=== PATIENT | female | born 1985 | race African-American/Black ===

== ENCOUNTER 2017-02-27 12:13 | Inpatient (IN) | payer OTHER ==
[2017-02-27 13:12] VITALS: BMI 34.4
--- NOTE | 2017-02-27 17:43 | HP ---
Admission ROS [facility] - [facility] Chief Complaint: I WANT TO GO TO REHAB Allergies/Adverse Reactions: Allergies Allergy/AdvReac Type Severity Reaction Status Date / Time azithromycin Allergy Severe Hives Verified 02/27/17 14:59 peanut Allergy Unknown Verified 02/27/17 14:56 soy Allergy Unknown Verified 02/27/17 14:56 LACTOSE AdvReac Severe diarrhea Uncoded 02/27/17 14:57 History of Present Illness: 31 YEARS OLD FEMALE WITH LONG HISTORY OF ALCOHOL NICOTINE DEPENDENCE HAS ASTHMA , GERD, BIPOLAR II IS ADMITTED TO REHAB Exam Limitations: No Limitations - Ebola screening Have you traveled outside of the country in the last 21 days: No Have you had contact with anyone from an Ebola affected area: No Have you been sick,other than usual withdrawal symptoms: No Do you have a fever: No - Review of Systems Constitutional: No Symptoms Reported EENT: reports: Blurred Vision (EYE GLASSES) Respiratory: reports: SOB with Exertion, Productive cough (CLEAR) Cardiac: reports: No Symptoms Reported GI: reports: Indigestion : reports: No Symptoms Reported Musculoskeletal: reports: Back Pain, Joint Pain (KNEES) Integumentary: reports: No Symptoms Reported Neuro: reports: Seizure (SINCE CHILD PIÑA, TOPIRAMATE) Endocrine: reports: No Symptoms Reported Hematology: reports: No Symptoms Reported Psychiatric: reports: Judgement Intact, Orientated x3, Anxious, Depressed Other Systems: Reviewed and Negative Patient History - Patient Medical History Hx Anemia: No Hx Asthma: Yes Hx Chronic Obstructive Pulmonary Disease (COPD): Yes Hx Cancer: No Hx Cardiac Disorders: No Hx Congestive Heart Failure: No Hx Hypertension: No Hx Hypercholesterolemia: No Hx Pacemaker: No HX Cerebrovascular Accident: No Hx Seizures: No Hx Dementia: No Hx Diabetes: No Hx Gastrointestinal Disorders: Yes (acid reflux) Hx Liver Disease: No Hx Genitourinary Disorders: No Hx Sexually Transmitted Disorders: Yes (genital herpes) Hx Renal Disease (ESRD): No Hx Thyroid Disease: No Hx Human Immunodeficiency Virus (HIV): No Hx Hepatitis C: No Hx Depression: No Hx Suicide Attempt: No Hx Bipolar Disorder: Yes Hx Schizophrenia: No - Patient Surgical History Past Surgical History: Yes Hx Neurologic Surgery: No Hx Cataract Extraction: No Hx Cardiac Surgery: No Hx Lung Surgery: No Hx Breast Surgery: No Hx Breast Biopsy: No Hx Abdominal Surgery: No Hx Appendectomy: No Hx Cholecystectomy: No Hx Genitourinary Surgery: No Hx Section: Yes Hx Orthopedic Surgery: Yes (fx, left side of face in 2015) Hx Hysterectomy: No Anesthesia Reaction: No - PPD History Previous Implant?: Yes Documented Results: Negative w/o proof Implanted On Prior [facility] Admission?: No PPD to be Administered?: Yes - Reproductive History Patient is a Female of Child Bearing Age (11 -55 yrs old): Yes Last Menstrual Period: 02/01/17 Patient : No - Smoking Cessation Smoking history: Current every day smoker Have you smoked in the past 12 months: Yes Aproximately how many cigarettes per day: 40 Cigars Per Day: 0 Hx Chewing Tobacco Use: No Initiated information on smoking cessation: Yes 'Breaking Loose' booklet given: 02/27/17 - Substance & Tx. History Hx Alcohol Use: Yes Hx Substance Use: No Substance Use Type: Alcohol Hx Substance Use Treatment: Yes (2014) - Substances Abused Alcohol-beer Route: Oral Frequency: Daily Amount used: 1-2 (24 oz.) Age of first use: 13 Date of Last Use: 02/25/17 Family Disease History - Family Disease History Family Disease History: Respiratory: Grandparent, Brother (NO CONTACT), Other: Father (NO CONTACT), Mother (NO CONTACT), Brother, Sister (NO CONTACT) Admission Physical Exam S - Vital Signs Vital Signs: Vital Signs - 24 hr 02/27/17 13:10 Temperature 98.6 F Pulse Rate 97 H Respiratory 20 Rate Blood Pressure 117/66 - Physical General Appearance: Yes: No Apparent Distress, Appropriately Dressed, Obese HEENTM: Yes: Hearing grossly Normal, Normal ENT Inspection, Normocephalic, Normal Voice Respiratory: Yes: Chest Non-Tender, No Respiratory Distress, No Accessory Muscle Use, Wheezing, Hyperresonant Neck: Yes: Supple, Trachea in good position Breast: Yes: Breasts Symetrical Cardiology: Yes: Regular Rhythm, S1, S2, Tachycardia Abdominal: Yes: Normal Bowel Sounds, Non Tender, Soft Genitourinary: Yes: Within Normal Limits Back: Yes: Normal Inspection Musculoskeletal: Yes: full range of Motion, Gait Steady, Back pain Extremities: Yes: Normal Inspection, Normal Range of Motion, Non-Tender Neurological: Yes: Fully Oriented, Alert, Motor Strength 5/5, Normal Response, Depressed Affect Integumentary: Yes: Warm Lymphatic: Yes: Within Normal Limits - Diagnostic (1) Alcohol dependence with uncomplicated withdrawal Current Visit: Yes Status: Acute (2) Asthma Current Visit: Yes Status: Chronic Qualifiers: Asthma severity: mild Asthma persistence: intermittent Asthma complication type: with status asthmaticus Qualified Code(s): J45.22 - Mild intermittent asthma with status asthmaticus; J45.22 - Mild intermittent asthma with status asthmaticus; J45.22 - Mild intermittent asthma with status asthmaticus (3) GERD (gastroesophageal reflux disease) Current Visit: Yes Status: Chronic Qualifiers: Esophagitis presence: without esophagitis Qualified Code(s): K21.9 - Gastro-esophageal reflux disease without esophagitis; K21.9 - Gastro- esophageal reflux disease without esophagitis; K21.9 - Gastro-esophageal reflux disease without esophagitis (4) Nicotine dependence Current Visit: Yes Status: Acute Qualifiers: Nicotine product type: cigarettes Substance use status: in withdrawal Qualified Code(s): F17.213 - Nicotine dependence, cigarettes, with withdrawal; F17.213 - Nicotine dependence, cigarettes, with withdrawal (5) Seizure Current Visit: Yes Status: Chronic (6) Herpes Current Visit: Yes Status: Chronic (7) Chronic knee pain Current Visit: Yes Status: Chronic Qualifiers: Laterality: bilateral Qualified Code(s): M25.561 - Pain in right knee; M25.561 - Pain in right knee; G89.29 - Other chronic pain; G89.29 - Other chronic pain (8) Chronic back pain Current Visit: Yes Status: Chronic Qualifiers: Back pain location: low back pain Back pain laterality: bilateral Sciatica presence: without sciatica Qualified Code(s): M54.5 - Low back pain; M54.5 - Low back pain; G89.29 - Other chronic pain; G89.29 - Other chronic pain (9) Bipolar II disorder Current Visit: Yes Status: Suspected Cleared for Admission [facility] - Detox or Rehab [facility] Level of Care: Observation Bed Detox Regimen/Protocol: Not Applicable Claeared for Rehab Admission: Yes [facility] Breath Alcohol Content Breath Alcohol Content: 0 Urine Pregancy Test - Result Urine Test Results: Negative- NO Line Present Urine Drug Screen - Results Drug Screen Negative: Yes Inpatient Rehab Admission - Initial Determination Are CD services needed?: Yes Free of communicable disease: Yes Not in need of hospitalization: Yes - Rehab Admission Criteria Previous failed treatment: Yes Poor recovery environment: Yes Comorbidities: Yes Lacks judgement: No Patient is meeting Inpatient Rehab admission criteria:: Yes
[2017-02-27] MEDS ORDERED: P-EPHED 60MG/TRIPROLIDI 2.5MG TABLET PO PRN (17:45)
[2017-02-27] MEDS ORDERED: ACETAMINOPHEN 325 MG TABLET (FP) PO PRN (17:45)
[2017-02-27] MEDS ORDERED: MENTHOL/PHENOL 1 EACH UD MM PRN (17:45)
[2017-02-27] MEDS ORDERED: MAGNESIUM HYDROX 2400MG/30ML ORAL SUSPENSION 30 ML CUP PO PRN (17:45)
[2017-02-27] MEDS ORDERED: LOPERAMIDE HCL 2 MG CAPSULE PO PRN (17:45)
[2017-02-27] MEDS ORDERED: guaiFENesin/D-METHORPHAN HB 10 ML UNIT-DOSE CUPS PO PRN (17:45)
[2017-02-27] MEDS ORDERED: MAGNESIUM CITRATE 300 ML BOTTLE PO PRN (17:45)
[2017-02-27] MEDS ORDERED: MAG HYDROX/AL HYDROX/SIMETH 30 ML UNIT-DOSE CUP PO PRN (17:45)
[2017-02-27] MEDS: THIAMINE HCL 100 MG TABLET (FP) PO SCH (21:56)
[2017-02-27] MEDS: MONTELUKAST NA 10 MG TABLET PO SCH (21:56)
[2017-02-27] MEDS: BUDESONIDE/FORMETEROL FUMARATE 80/4.5 mcg INHALER IH SCH (21:57)
[2017-02-28 00:30] LABS: PH,URINE 5.5 (5.0-8.0); URINE APPEARANCE CLEAR; URINE BILIRUBIN NEGATIVE (NEGATIVE); URINE BLOOD NEGATIVE (NEGATIVE); URINE COLOR LT. YELLOW; URINE GLUCOSE (UA) NEGATIVE (NEGATIVE); URINE KETONE NEGATIVE (NEGATIVE); URINE NITRITE NEGATIVE (NEGATIVE); URINE PROTEIN NEGATIVE (NEGATIVE); URINE UROBILINOGEN 0.2 mg/dL (0.2-1.0)
[2017-02-28] MEDS: PRENATAL VITAMINS W/ FOLIC ACID TABLET (FP) PO SCH (09:27)
[2017-02-28] MEDS: PATIENT'S OWN MEDICATION (NON-FORMULARY) (Famotidine [Pepcid -] 20 MG) PO SCH ×2 (09:27→21:59)
[2017-02-28] MEDS: NICOTINE 21 MG/24 HOURS TOPICAL PATCH TD SCH (09:28)
[2017-02-28] MEDS: BUDESONIDE/FORMETEROL FUMARATE 80/4.5 mcg INHALER IH SCH ×2 (09:28→22:00)
[2017-02-28] MEDS: valACYclovir HCL 500 MG TABLET (FP) PO SCH (09:28)
[2017-02-28] MEDS: NICOTINE POLACRILEX 4 MG GUM BC PRN ×3 (09:29→22:01)
[2017-02-28 09:53] LABS: URINE LEUK ESTERASE Negative (NEGATIVE)
[2017-02-28 10:02] LABS: MCH 30.2 pg (25.7-33.7); MCHC 33.2 g/dl (32.0-36.0); MEAN CELL VOLUME 90.9 fl (80-96); MEAN PLT VOLUME 11.4 fl (7.5-11.1); PLATELET COUNT 188 K/MM3 (134-434); RDW 14.1 % (11.6-15.6); WHITE BLOOD COUNT 7.9 K/mm3 (4.0-10.0)
[2017-02-28] MEDS: SERTRALINE HCL 50 MG TABLET (FP) PO SCH (10:32)
[2017-02-28] MEDS: TOPIRAMATE 25 MG TABLET (FP) PO SCH (10:33)
[2017-02-28 11:08] LABS: ALK PHOS 80 U/L (45-117); ANION GAP 10 (8-16); BILIRUBIN,TOTAL 0.8 mg/dL (0.2-1.0); CALCIUM 8.7 mg/dL (8.5-10.1); CO2 23 mmol/L (21-32); CREATININE 0.7 mg/dL (0.55-1.02); GLUCOSE,RANDOM 117 mg/dL (74-106); SGOT/AST 9 U/L (15-37); SGPT/ALT 14 U/L (12-78); TOT PROT 7.6 g/dl (6.4-8.2)
[2017-02-28] MEDS: LITHIUM CARBONATE 150 MG CAPSULE PO SCH ×3 (13:24→21:59)
[2017-02-28] MEDS ORDERED: PATIENT'S OWN MEDICATION (NON-FORMULARY) (Cetirizine Hcl 10 MG) PO PRN (14:32)
[2017-02-28] MEDS ORDERED: PT OWN MED DRAWER 7, Y5N ONE ×2 (15:39→21:59)
--- NOTE | 2017-02-28 21:29 | EKG ---
Test Reason : Blood Pressure : / mmHG Vent. Rate : 098 BPM Atrial Rate : 098 BPM P-R Int : 164 ms QRS Dur : 082 ms QT Int : 348 ms P-R-T Axes : 065 054 058 degrees QTc Int : 444 ms NORMAL SINUS RHYTHM EARLT TRANSIYION IN V2 NO PREVIOUS ECGS AVAILABLE REPEAT EKG IF CLINICALLY INDICATED Confirmed by IDALIA RODRIGUEZ MD ([id number]) on 02/28/2017 9:28:58 PM Referred By: Confirmed By:IDALIA RODRIGUEZ MD
[2017-02-28] MEDS: THIAMINE HCL 100 MG TABLET (FP) PO SCH (21:58)
[2017-02-28] MEDS: MONTELUKAST NA 10 MG TABLET PO SCH (21:58)
[2017-03-01] MEDS ORDERED: PT OWN MED DRAWER 7, Y5N ONE ×2 (03:21→12:31)
[2017-03-01] MEDS: LITHIUM CARBONATE 150 MG CAPSULE PO SCH ×3 (07:30→21:22)
[2017-03-01] MEDS: PATIENT'S OWN MEDICATION (NON-FORMULARY) (Famotidine [Pepcid -] 20 MG) PO SCH ×3 (10:23→21:22)
[2017-03-01] MEDS: TOPIRAMATE 25 MG TABLET (FP) PO SCH (10:23)
[2017-03-01] MEDS: valACYclovir HCL 500 MG TABLET (FP) PO SCH (10:23)
[2017-03-01] MEDS: PRENATAL VITAMINS W/ FOLIC ACID TABLET (FP) PO SCH (10:23)
[2017-03-01] MEDS: SERTRALINE HCL 50 MG TABLET (FP) PO SCH (10:23)
[2017-03-01] MEDS: NICOTINE 21 MG/24 HOURS TOPICAL PATCH TD SCH (10:24)
[2017-03-01] MEDS: BUDESONIDE/FORMETEROL FUMARATE 80/4.5 mcg INHALER IH SCH ×2 (10:25→21:22)
[2017-03-01] MEDS: NICOTINE POLACRILEX 4 MG GUM BC PRN ×3 (10:28→18:20)
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
[2017-03-01] MEDS: THIAMINE HCL 100 MG TABLET (FP) PO SCH (21:23)
[2017-03-01] MEDS: MONTELUKAST NA 10 MG TABLET PO SCH (21:23)
[2017-03-02] MEDS: LITHIUM CARBONATE 150 MG CAPSULE PO SCH ×3 (06:26→22:32)
[2017-03-02] MEDS ORDERED: PT OWN MED DRAWER 7, Y5N ONE (06:29)
[2017-03-02] MEDS: BUDESONIDE/FORMETEROL FUMARATE 80/4.5 mcg INHALER IH SCH ×2 (06:33→21:21)
[2017-03-02] MEDS: TOPIRAMATE 25 MG TABLET (FP) PO SCH (10:11)
[2017-03-02] MEDS: PRENATAL VITAMINS W/ FOLIC ACID TABLET (FP) PO SCH (10:11)
[2017-03-02] MEDS: SERTRALINE HCL 50 MG TABLET (FP) PO SCH (10:11)
[2017-03-02] MEDS: PATIENT'S OWN MEDICATION (NON-FORMULARY) (Famotidine [Pepcid -] 20 MG) PO SCH ×2 (10:11→21:21)
[2017-03-02] MEDS: valACYclovir HCL 500 MG TABLET (FP) PO SCH (10:11)
[2017-03-02] MEDS: NICOTINE 21 MG/24 HOURS TOPICAL PATCH TD SCH (10:11)
[2017-03-02] MEDS: NICOTINE POLACRILEX 4 MG GUM BC PRN ×2 (10:12→15:37)
[2017-03-02] MEDS: THIAMINE HCL 100 MG TABLET (FP) PO SCH (21:20)
[2017-03-02] MEDS: MONTELUKAST NA 10 MG TABLET PO SCH (21:21)
[2017-03-03] MEDS: LITHIUM CARBONATE 150 MG CAPSULE PO SCH ×3 (06:14→21:28)
[2017-03-03] MEDS: BUDESONIDE/FORMETEROL FUMARATE 80/4.5 mcg INHALER IH SCH ×2 (06:14→21:27)
[2017-03-03] MEDS: PATIENT'S OWN MEDICATION (NON-FORMULARY) (Famotidine [Pepcid -] 20 MG) PO SCH ×2 (10:14→21:27)
[2017-03-03] MEDS: TOPIRAMATE 25 MG TABLET (FP) PO SCH (10:15)
[2017-03-03] MEDS: PRENATAL VITAMINS W/ FOLIC ACID TABLET (FP) PO SCH (10:15)
[2017-03-03] MEDS: SERTRALINE HCL 50 MG TABLET (FP) PO SCH (10:15)
[2017-03-03] MEDS: NICOTINE 21 MG/24 HOURS TOPICAL PATCH TD SCH (10:15)
[2017-03-03] MEDS: valACYclovir HCL 500 MG TABLET (FP) PO SCH (10:15)
[2017-03-03] MEDS: NICOTINE POLACRILEX 4 MG GUM BC PRN (14:29)
[2017-03-03] MEDS: THIAMINE HCL 100 MG TABLET (FP) PO SCH (21:28)
[2017-03-03] MEDS: MONTELUKAST NA 10 MG TABLET PO SCH (21:28)
[2017-03-04] MEDS ORDERED: PT OWN MED DRAWER 7, Y5N ONE (05:54)
[2017-03-04] MEDS: BUDESONIDE/FORMETEROL FUMARATE 80/4.5 mcg INHALER IH SCH ×2 (06:34→21:27)
[2017-03-04] MEDS: LITHIUM CARBONATE 150 MG CAPSULE PO SCH ×3 (06:35→21:26)
[2017-03-04] MEDS: valACYclovir HCL 500 MG TABLET (FP) PO SCH (09:45)
[2017-03-04] MEDS: PRENATAL VITAMINS W/ FOLIC ACID TABLET (FP) PO SCH (09:45)
[2017-03-04] MEDS: PATIENT'S OWN MEDICATION (NON-FORMULARY) (Famotidine [Pepcid -] 20 MG) PO SCH ×2 (09:45→21:27)
[2017-03-04] MEDS: SERTRALINE HCL 50 MG TABLET (FP) PO SCH (09:46)
[2017-03-04] MEDS: TOPIRAMATE 25 MG TABLET (FP) PO SCH (09:46)
[2017-03-04] MEDS: NICOTINE POLACRILEX 4 MG GUM BC PRN ×2 (09:47→12:14)
[2017-03-04] MEDS: NICOTINE 21 MG/24 HOURS TOPICAL PATCH TD SCH (09:48)
[2017-03-04] MEDS: ALBUTEROL SO4 18 GM HFA INHALER IH PRN (10:35)
[2017-03-04] MEDS: MONTELUKAST NA 10 MG TABLET PO SCH (21:26)
[2017-03-04] MEDS: THIAMINE HCL 100 MG TABLET (FP) PO SCH (21:26)
[2017-03-04] MEDS ORDERED: ALBUTEROL SO4 2.5/IPRATROPIUM 0.5 INH SOL 3 ML VIAL.NEB. NEB PRN (22:50)
[2017-03-05] MEDS: BUDESONIDE/FORMETEROL FUMARATE 80/4.5 mcg INHALER IH SCH ×2 (06:33→21:30)
[2017-03-05] MEDS: LITHIUM CARBONATE 150 MG CAPSULE PO SCH ×3 (06:34→21:29)
[2017-03-05] MEDS: ALBUTEROL SO4 18 GM HFA INHALER IH PRN ×2 (06:34→13:03)
[2017-03-05] MEDS: SERTRALINE HCL 50 MG TABLET (FP) PO SCH (09:28)
[2017-03-05] MEDS: NAPROXEN 500 MG TABLET (FP) PO PRN ×2 (09:28→21:31)
[2017-03-05] MEDS: TOPIRAMATE 25 MG TABLET (FP) PO SCH (09:28)
[2017-03-05] MEDS: valACYclovir HCL 500 MG TABLET (FP) PO SCH (09:28)
[2017-03-05] MEDS: PATIENT'S OWN MEDICATION (NON-FORMULARY) (Famotidine [Pepcid -] 20 MG) PO SCH ×2 (09:28→21:29)
[2017-03-05] MEDS: PRENATAL VITAMINS W/ FOLIC ACID TABLET (FP) PO SCH (09:28)
[2017-03-05] MEDS: NICOTINE 21 MG/24 HOURS TOPICAL PATCH TD SCH (09:29)
[2017-03-05] MEDS: NICOTINE POLACRILEX 4 MG GUM BC PRN (09:30)
[2017-03-05] MEDS: THIAMINE HCL 100 MG TABLET (FP) PO SCH (21:28)
[2017-03-05] MEDS: MONTELUKAST NA 10 MG TABLET PO SCH (21:29)
[2017-03-05] MEDS ORDERED: PT OWN MED DRAWER 7, Y5N ONE (21:31)
[2017-03-06] MEDS: BUDESONIDE/FORMETEROL FUMARATE 80/4.5 mcg INHALER IH SCH ×2 (06:44→21:21)
[2017-03-06] MEDS: LITHIUM CARBONATE 150 MG CAPSULE PO SCH ×3 (06:44→21:20)
[2017-03-06] MEDS: TOPIRAMATE 25 MG TABLET (FP) PO SCH (10:24)
[2017-03-06] MEDS: PRENATAL VITAMINS W/ FOLIC ACID TABLET (FP) PO SCH (10:24)
[2017-03-06] MEDS: PATIENT'S OWN MEDICATION (NON-FORMULARY) (Famotidine [Pepcid -] 20 MG) PO SCH ×2 (10:25→21:20)
[2017-03-06] MEDS: SERTRALINE HCL 50 MG TABLET (FP) PO SCH (10:25)
[2017-03-06] MEDS: NICOTINE 21 MG/24 HOURS TOPICAL PATCH TD SCH (10:25)
[2017-03-06] MEDS: valACYclovir HCL 500 MG TABLET (FP) PO SCH (10:25)
[2017-03-06] MEDS ORDERED: PT OWN MED DRAWER 7, Y5N ONE ×2 (16:08→21:21)
[2017-03-06] MEDS: MONTELUKAST NA 10 MG TABLET PO SCH (21:19)
[2017-03-06] MEDS: NAPROXEN 500 MG TABLET (FP) PO PRN (21:19)
[2017-03-06] MEDS: THIAMINE HCL 100 MG TABLET (FP) PO SCH (21:19)
[2017-03-07] MEDS: BUDESONIDE/FORMETEROL FUMARATE 80/4.5 mcg INHALER IH SCH ×2 (06:21→21:23)
[2017-03-07] MEDS: LITHIUM CARBONATE 150 MG CAPSULE PO SCH ×3 (06:21→21:22)
[2017-03-07] MEDS: PATIENT'S OWN MEDICATION (NON-FORMULARY) (Famotidine [Pepcid -] 20 MG) PO SCH ×2 (10:12→21:22)
[2017-03-07] MEDS: valACYclovir HCL 500 MG TABLET (FP) PO SCH (10:13)
[2017-03-07] MEDS: SERTRALINE HCL 50 MG TABLET (FP) PO SCH (10:13)
[2017-03-07] MEDS: PRENATAL VITAMINS W/ FOLIC ACID TABLET (FP) PO SCH (10:13)
[2017-03-07] MEDS: NICOTINE 21 MG/24 HOURS TOPICAL PATCH TD SCH (10:13)
[2017-03-07] MEDS: TOPIRAMATE 25 MG TABLET (FP) PO SCH (10:13)
[2017-03-07] MEDS: NICOTINE POLACRILEX 4 MG GUM BC PRN (10:14)
[2017-03-07] MEDS ORDERED: PT OWN MED DRAWER 7, Y5N ONE ×2 (10:55→15:12)
--- NOTE | 2017-03-07 12:16 | PN ---
[facility] Progress Note (SOAP) Subjective: patient requesting to review chest xray, still has SOB, h/o bronchitis thinks it maybe heat in room. no SOB at rest, SOBOE Objective: 03/07/17 12:12 Vital Signs - 24 hr 03/07/17 03/07/17 03:30 06:49 Temperature 98.0 F Pulse Rate 80 Respiratory 18 16 Rate Blood Pressure 117/76 Laboratory Tests 02/27/17 02/28/17 02/28/17 22:40 06:00 06:00 WBC 7.9 RBC 4.40 Hgb 13.3 Hct 40.0 MCV 90.9 MCH 30.2 MCHC 33.2 RDW 14.1 Plt Count 188 MPV 11.4 H Sodium 137 Potassium 3.8 Chloride 104 Carbon Dioxide 23 Anion Gap 10 BUN 12 Creatinine 0.7 Creat Clearance w eGFR > 60 Random Glucose 117 H Calcium 8.7 Total Bilirubin 0.8 AST 9 L ALT 14 Alkaline Phosphatase 80 Total Protein 7.6 Albumin 4.0 Urine Color Lt. yellow Urine Appearance Clear Urine pH 5.5 Ur Specific [place] >= 1.030 Urine Protein Negative Urine Glucose (UA) Negative Urine Ketones Negative Urine Blood Negative Urine Nitrite Negative Urine Bilirubin Negative Urine Urobilinogen 0.2 Ur Leukocyte Esterase Negative RPR Titer 02/28/17 06:00 WBC RBC Hgb Hct MCV MCH MCHC RDW Plt Count MPV Sodium Potassium Chloride Carbon Dioxide Anion Gap BUN Creatinine Creat Clearance w eGFR Random Glucose Calcium Total Bilirubin AST ALT Alkaline Phosphatase Total Protein Albumin Urine Color Urine Appearance Urine pH Ur Specific [place] Urine Protein Urine Glucose (UA) Urine Ketones Urine Blood Urine Nitrite Urine Bilirubin Urine Urobilinogen Ur Leukocyte Esterase RPR Titer Nonreactive no SOB, a and o x3 , chest clear, no wheeze s1 and s2 Assessment: 03/07/17 12:14 no acute pathology noted on xray, asymptomatic on naproxen Plan: naproxen prn,musculoskeletal chest pain - no cuogh or sputum
[2017-03-07] MEDS: MONTELUKAST NA 10 MG TABLET PO SCH (21:22)
[2017-03-07] MEDS: THIAMINE HCL 100 MG TABLET (FP) PO SCH (21:23)
[2017-03-08] MEDS: BUDESONIDE/FORMETEROL FUMARATE 80/4.5 mcg INHALER IH SCH ×2 (06:25→21:29)
[2017-03-08] MEDS: LITHIUM CARBONATE 150 MG CAPSULE PO SCH ×3 (06:25→21:28)
[2017-03-08] MEDS: PATIENT'S OWN MEDICATION (NON-FORMULARY) (Famotidine [Pepcid -] 20 MG) PO SCH ×2 (10:26→21:29)
[2017-03-08] MEDS: SERTRALINE HCL 50 MG TABLET (FP) PO SCH (10:26)
[2017-03-08] MEDS: valACYclovir HCL 500 MG TABLET (FP) PO SCH (10:26)
[2017-03-08] MEDS: TOPIRAMATE 25 MG TABLET (FP) PO SCH (10:26)
[2017-03-08] MEDS: PRENATAL VITAMINS W/ FOLIC ACID TABLET (FP) PO SCH (10:26)
[2017-03-08] MEDS: NICOTINE 21 MG/24 HOURS TOPICAL PATCH TD SCH (10:27)
[2017-03-08] MEDS: THIAMINE HCL 100 MG TABLET (FP) PO SCH (21:28)
[2017-03-08] MEDS: MONTELUKAST NA 10 MG TABLET PO SCH (21:28)
[2017-03-08] MEDS ORDERED: PT OWN MED DRAWER 7, Y5N ONE ×2 (21:30→23:37)
[2017-03-09] MEDS: LITHIUM CARBONATE 150 MG CAPSULE PO SCH ×3 (06:27→21:32)
[2017-03-09] MEDS: BUDESONIDE/FORMETEROL FUMARATE 80/4.5 mcg INHALER IH SCH ×2 (06:28→21:32)
[2017-03-09] MEDS: SERTRALINE HCL 50 MG TABLET (FP) PO SCH (09:59)
[2017-03-09] MEDS: valACYclovir HCL 500 MG TABLET (FP) PO SCH (09:59)
[2017-03-09] MEDS: PRENATAL VITAMINS W/ FOLIC ACID TABLET (FP) PO SCH (09:59)
[2017-03-09] MEDS: TOPIRAMATE 25 MG TABLET (FP) PO SCH (09:59)
[2017-03-09] MEDS: PATIENT'S OWN MEDICATION (NON-FORMULARY) (Famotidine [Pepcid -] 20 MG) PO SCH ×2 (10:00→21:33)
[2017-03-09] MEDS ORDERED: PT OWN MED DRAWER 7, Y5N ONE ×5 (10:00→21:05)
[2017-03-09] MEDS: NICOTINE 21 MG/24 HOURS TOPICAL PATCH TD SCH (10:01)
[2017-03-09] MEDS: NICOTINE POLACRILEX 4 MG GUM BC PRN (10:01)
[2017-03-09] MEDS: MONTELUKAST NA 10 MG TABLET PO SCH (21:32)
[2017-03-09] MEDS: THIAMINE HCL 100 MG TABLET (FP) PO SCH (21:32)
[2017-03-10] MEDS: BUDESONIDE/FORMETEROL FUMARATE 80/4.5 mcg INHALER IH SCH ×2 (06:44→21:30)
[2017-03-10] MEDS: LITHIUM CARBONATE 150 MG CAPSULE PO SCH ×3 (06:44→21:29)
[2017-03-10] MEDS: SERTRALINE HCL 50 MG TABLET (FP) PO SCH (10:33)
[2017-03-10] MEDS: valACYclovir HCL 500 MG TABLET (FP) PO SCH (10:33)
[2017-03-10] MEDS: TOPIRAMATE 25 MG TABLET (FP) PO SCH (10:33)
[2017-03-10] MEDS: PRENATAL VITAMINS W/ FOLIC ACID TABLET (FP) PO SCH (10:33)
[2017-03-10] MEDS: PATIENT'S OWN MEDICATION (NON-FORMULARY) (Famotidine [Pepcid -] 20 MG) PO SCH ×2 (10:34→21:29)
[2017-03-10] MEDS: NICOTINE 21 MG/24 HOURS TOPICAL PATCH TD SCH (10:34)
[2017-03-10] MEDS: THIAMINE HCL 100 MG TABLET (FP) PO SCH (21:29)
[2017-03-10] MEDS: MONTELUKAST NA 10 MG TABLET PO SCH (21:29)
[2017-03-11] MEDS: BUDESONIDE/FORMETEROL FUMARATE 80/4.5 mcg INHALER IH SCH ×2 (06:36→21:26)
[2017-03-11] MEDS: LITHIUM CARBONATE 150 MG CAPSULE PO SCH ×3 (06:37→21:27)
[2017-03-11] MEDS ORDERED: PT OWN MED DRAWER 7, Y5N ONE ×5 (06:38→14:48)
[2017-03-11] MEDS: NICOTINE POLACRILEX 4 MG GUM BC PRN ×3 (06:39→21:27)
[2017-03-11] MEDS: TOPIRAMATE 25 MG TABLET (FP) PO SCH (09:01)
[2017-03-11] MEDS: PATIENT'S OWN MEDICATION (NON-FORMULARY) (Famotidine [Pepcid -] 20 MG) PO SCH ×2 (09:01→21:26)
[2017-03-11] MEDS: SERTRALINE HCL 50 MG TABLET (FP) PO SCH (09:01)
[2017-03-11] MEDS: valACYclovir HCL 500 MG TABLET (FP) PO SCH (09:01)
[2017-03-11] MEDS: PRENATAL VITAMINS W/ FOLIC ACID TABLET (FP) PO SCH (09:01)
[2017-03-11] MEDS: NICOTINE 21 MG/24 HOURS TOPICAL PATCH TD SCH (09:02)
[2017-03-11] MEDS: MONTELUKAST NA 10 MG TABLET PO SCH (21:27)
[2017-03-11] MEDS: THIAMINE HCL 100 MG TABLET (FP) PO SCH (21:35)
[2017-03-12] MEDS: NICOTINE POLACRILEX 4 MG GUM BC PRN ×3 (06:40→21:27)
[2017-03-12] MEDS: LITHIUM CARBONATE 150 MG CAPSULE PO SCH ×3 (06:40→21:25)
[2017-03-12] MEDS: BUDESONIDE/FORMETEROL FUMARATE 80/4.5 mcg INHALER IH SCH ×2 (06:40→21:25)
[2017-03-12] MEDS: PATIENT'S OWN MEDICATION (NON-FORMULARY) (Famotidine [Pepcid -] 20 MG) PO SCH ×2 (09:24→21:25)
[2017-03-12] MEDS: PRENATAL VITAMINS W/ FOLIC ACID TABLET (FP) PO SCH (09:25)
[2017-03-12] MEDS: SERTRALINE HCL 50 MG TABLET (FP) PO SCH (09:25)
[2017-03-12] MEDS: valACYclovir HCL 500 MG TABLET (FP) PO SCH (09:25)
[2017-03-12] MEDS: TOPIRAMATE 25 MG TABLET (FP) PO SCH (09:25)
[2017-03-12] MEDS: NICOTINE 21 MG/24 HOURS TOPICAL PATCH TD SCH (09:25)
[2017-03-12] MEDS ORDERED: PT OWN MED DRAWER 7, Y5N ONE (14:31)
[2017-03-12] MEDS: THIAMINE HCL 100 MG TABLET (FP) PO SCH (21:25)
[2017-03-12] MEDS: MONTELUKAST NA 10 MG TABLET PO SCH (21:25)
[2017-03-13] MEDS ORDERED: PT OWN MED DRAWER 7, Y5N ONE (03:28)
[2017-03-13] MEDS: BUDESONIDE/FORMETEROL FUMARATE 80/4.5 mcg INHALER IH SCH (06:26)
[2017-03-13] MEDS: NICOTINE POLACRILEX 4 MG GUM BC PRN (06:27)
[2017-03-13] MEDS: LITHIUM CARBONATE 150 MG CAPSULE PO SCH (06:27)
[2017-03-13 06:59] VITALS: BP 115/73; PULSE 58; TEMP 98.1
[2017-03-13] MEDS: PRENATAL VITAMINS W/ FOLIC ACID TABLET (FP) PO SCH (09:15)
[2017-03-13] MEDS: valACYclovir HCL 500 MG TABLET (FP) PO SCH (09:15)
[2017-03-13] MEDS: SERTRALINE HCL 50 MG TABLET (FP) PO SCH (09:15)
[2017-03-13] MEDS: TOPIRAMATE 25 MG TABLET (FP) PO SCH (09:15)
[2017-03-13] MEDS: NICOTINE 21 MG/24 HOURS TOPICAL PATCH TD SCH (09:15)
[2017-03-13] MEDS: PATIENT'S OWN MEDICATION (NON-FORMULARY) (Famotidine [Pepcid -] 20 MG) PO SCH (09:16)
--- NOTE | 2017-03-13 09:34 | PN ---
Psychiatric Progress Note Vital Signs: Vital Signs Period Temp Pulse Resp BP Sys/Camacho Pulse Ox Last 24 Hr 98.1 F 58 18-18 115/73 Date of Session: 03/13/17 Chief Complaint:: Discharge visit HPI: Patient addresed alcohol dependence comorbid with Bipolar II disorder. ROS: Significant for Seizure,Cronic arthritis,Low back pain,GERD,BA,Herpes. Current Medications: Active Medications Generic Name Dose Route Start Last Admin Trade Name Freq PRN Reason Stop Dose Admin Acetaminophen 650 mg 02/27/17 17:45 03/05/17 13:05 Tylenol - PO 650 mg Q4H PRN Administration PAIN Al Hydroxide/Mg Hydroxide 30 ml 02/27/17 17:45 Mylanta Oral Suspension - PO Q6H PRN DYSPEPSIA Albuterol Sulfate 2 puff 02/27/17 17:48 03/05/17 13:03 Ventolin Hfa Inhaler - IH 2 inh Q4H PRN Administration SHORT OF BREATH/WHEEZING Budesonide/Formoterol Fumarate 2 puff 03/02/17 06:30 03/13/17 06:26 Symbicort 80/4.5mcg - IH 2 puff BID@0600,2200 TORIN Administration Eucalyptus/Menthol/Phenol/Sorbitol 1 each 02/27/17 17:45 Cepastat Lozenge - MM Q4H PRN SORE THROAT Guaifenesin 10 ml 02/27/17 17:45 Robitussin Dm - PO Q6H PRN COUGH [place] Carbonate 150 mg 02/28/17 10:00 03/13/17 06:27 Eskalith - PO 150 mg TID TORIN Administration Loperamide HCl 4 mg 02/27/17 17:45 Imodium - PO Q6H PRN DIARRHEA Magnesium Citrate 300 ml 02/27/17 17:45 Citroma - PO Q48H PRN CONSTIPATION Magnesium Hydroxide 30 ml 02/27/17 17:45 03/05/17 15:29 Milk Of Magnesia - PO 30 ml DAILY PRN Administration CONSTIPATION Montelukast Sodium 10 mg 02/27/17 22:00 03/12/17 21:25 Singulair - PO 10 mg HS TORIN Administration Nicotine 21 mg 02/28/17 10:00 03/13/17 09:15 Nicoderm Patch - TD Not Given DAILY TORIN Nicotine Polacrilex 4 mg 02/27/17 17:45 03/13/17 06:27 Nicorette Gum - BC 4 mg Q2H PRN Administration NICOTINE REPLACEMENT RX Non-Formulary Medication 20 mg 02/27/17 22:00 03/13/17 09:16 Famotidine [Pepcid -] PO 20 mg BID TORIN Administration Non-Formulary Medication 10 mg 02/28/17 14:32 Cetirizine Hcl PO DAILY PRN NASAL CONGESTION Multivit/Folic Acid/Iron 1 tab 02/28/17 10:00 03/13/17 09:15 Vitamins (Sjr) - PO 1 tab DAILY TORIN Administration Sertraline HCl 50 mg 02/28/17 10:00 03/13/17 09:15 Zoloft - PO 50 mg DAILY TORIN Administration Thiamine HCl 100 mg 02/27/17 22:00 03/12/17 21:25 Vitamin B1 - PO 100 mg HS TORIN Administration Topiramate 25 mg 02/28/17 10:00 03/13/17 09:15 Topamax - PO 25 mg DAILY TORIN Administration Valacyclovir HCl 500 mg 02/28/17 10:00 03/13/17 09:15 Valtrex - PO 500 mg DAILY TORIN Administration Current Side Effect: No Lab tests ordered: No Lab tests reviewed: Yes Provider note:: Patient completed this program today.she has met her treatment plan and will continue to address her issues on outpatient basis.Patient reports finding that current medications :Li 150 mg po tid,topamax 25 mg po daily and Zoloft 50 mg po daily help to cope with depression,anxiety,mood swings.scripts for 30 days provided.Coping skills ,support system utilization has been discussed with the patient as well as other resourses for maintanance of recovery. Patient is stable for discharge today. Total face to face time:: 30 Mental Status Exam - Mental Status Exam Alert and Oriented to: Time, Place, Person Cognitive Function: Grossly Intact Patient Appearance: Well Groomed Mood: Hopeful, Euthymic Affect: Appropriate, Mood Congruent Patient Behavior: Cooperative Speech Pattern: Clear Voice Loudness: Normal Thought Process: Goal Oriented Thought Disorder: Not Present Hallucinations: Denies Suicidal Ideation: Denies Homicidal Ideation: Denies Insight/Judgement: Fair Sleep: Fair Appetite: Good Muscle strength/Tone: Normal Gait/Station: Normal Psychiatric Treatment Plan - Problem List (1) Nicotine dependence Qualifiers: Nicotine product type: cigarettes Substance use status: in withdrawal Qualified Code(s): F17.213 - Nicotine dependence, cigarettes, with withdrawal (2) Asthma Qualifiers: Asthma severity: mild Asthma persistence: intermittent Asthma complication type: with status asthmaticus Qualified Code(s): J45.22 - Mild intermittent asthma with status asthmaticus (3) Chronic back pain Qualifiers: Back pain location: low back pain Back pain laterality: bilateral Sciatica presence: without sciatica Qualified Code(s): M54.5 - Low back pain; G89.29 - Other chronic pain; G89.29 - Other chronic pain (4) Chronic knee pain Qualifiers: Laterality: bilateral Qualified Code(s): M25.561 - Pain in right knee; M25.562 - Pain in left knee; M25.562 - Pain in left knee; G89.29 - Other chronic pain; G89.29 - Other chronic pain (5) GERD (gastroesophageal reflux disease) Qualifiers: Esophagitis presence: without esophagitis Qualified Code(s): K21.9 - Gastro -esophageal reflux disease without esophagitis
== END 2017-03-13 09:45 | disposition home or self-care (01) | DRG 772 ==
LOC: YASAS 12:13 → Y3E 20:07
PROVIDERS: ADMIT Psychiatry & Neurology Psychiatry; ATTEND Psychiatry & Neurology Psychiatry
PROC: HZ42ZZZ Group Counseling for Substance Abuse Treatment, Cognitive-Behavioral (ICD-10-PCS; principal; 2017-02-27)
DX: F10.20 Alcohol dependence, uncomplicated (principal); F17.213 Nicotine dependence, cigarettes, with withdrawal; F31.81 Bipolar II disorder; G40.909 Epilepsy, unspecified, not intractable, without status epilepticus; K21.9 Gastro-esophageal reflux disease without esophagitis; M54.5 Low back pain; G89.29 Other chronic pain; M25.561 Pain in right knee; M25.562 Pain in left knee; Z87.42 Personal history of other diseases of the female genital tract
CPT/HCPCS: 36415; 71010-TC; 80053; 81003; 85027; 86593; 93005; 93010; 94640